=== PATIENT | female | born 2005 | race Caucasian/White ===

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

== ENCOUNTER 2023-06-13 19:54 | Emergency (ER) | payer OTHER ==
[~2023-06-13] VITALS: Ht 167.6 cm; Wt 108.2 kg
[~2023-06-13 19:54] MED LIST: DEPO-PROVER150 MG/M1 IM; PREDNISONE50 MG PO; PROAIR HFA0.09 MG/AC IH; REGLAN 10MG10 MG/TAB PO; TAMIFLU 75MG75 MG PO; ZOFRAN 4MG T4 MG/TAB PO
[2023-06-13 20:03] VITALS: BP 121/79; TEMP 98.3
[2023-06-13] MEDS ORDERED: AMOXICILLIN 8751 TAB PO (21:05)
[2023-06-13 21:41] VITALS: PULSE 101
== END 2023-06-13 21:10 | disposition home or self-care (01) ==
LOC: COL.ER 19:54
DX: O99.713 Diseases of the skin and subcutaneous tissue complicating pregnancy, third trimester (principal); L02.411 Cutaneous abscess of right axilla; Z3A.34 34 weeks gestation of pregnancy

== ENCOUNTER 2024-05-12 07:12 | Emergency (ER) | payer OTHER, MEDICAID ==
[~2024-05-12] VITALS: Ht 167.6 cm; Wt 120.5 kg
[~2024-05-12 07:12] MED LIST changes: +AMOXICILLIN 8751 TAB PO
[2024-05-12] MEDS ORDERED: Acetaminophen 500 MG TAB PO ONE (08:00)
[2024-05-12] MEDS ORDERED: Morphine 10 MG/ML VIAL IM ONE (08:00)
[2024-05-12] MEDS ORDERED: PERCOCET 325 MG1 TA2 PO (08:55)
[2024-05-12 09:50] VITALS: BP 117/70; PULSE 123; TEMP 98.1
== END 2024-05-12 09:30 | disposition home or self-care (01) ==
LOC: COL.ER 07:12
DX: B34.9 Viral infection, unspecified (principal)
CPT/HCPCS: J2270

== ENCOUNTER 2024-05-13 09:11 | Emergency (ER) | payer OTHER, MEDICAID ==
[~2024-05-13] VITALS: Ht 170.2 cm; Wt 120.5 kg
[~2024-05-13 09:11] MED LIST changes: +PERCOCET 325 MG1 TA2 PO
[2024-05-13 09:17] VITALS: TEMP 98.3
[2024-05-13] MEDS ORDERED: LR 1,000 ML IV ONE (10:00)
[2024-05-13 10:11] LABS: BASO # 0.1 K/mm3 (0.0-0.2); BASO % 0.6 % (0.0-2.0); EOS # 0.2 K/mm3 (0.0-0.7); EOS % 1.6 % (0.0-4.0); GRAN # 7.9 K/mm3 (1.4-6.5); GRAN % 74.4 % (42.2-75.2); HEMATOCRIT 37.3 % (35.0-45.0); HEMOGLOBIN 12.4 g/dl (12.0-15.0); LYMPH # 1.7 K/mm3 (1.2-3.4); LYMPH % 16.2 % (20.0-51.0); MEAN CELL VOLUME 86 fl (80.0-95.0); MEAN CORPUSCULAR HEMOGLOBIN 29 pg (26-32); MEAN CORPUSCULAR HGB CONC 33 g/dl (33.0-37.0); MEAN PLATELET VOLUME 9.6 fl (7.4-10.4); MONO # 0.7 K/mm3 (0.1-0.6); MONO % 6.8 % (1.7-9.3); PLATELET COUNT 284 K/mm3 (130-400); RED BLOOD COUNT 4.34 M/mm3 (4.10-5.30); REDCELL DISTRIBUTION WIDTH-CV 13.8 % (11.5-14.5)
[2024-05-13 10:27] LABS: ALBUMIN 3.7 g/dL (3.5-5.0); BILIRUBIN,TOTAL 0.3 mg/dL (0.2-1.2); C-REACTIVE PROTEIN 9.11 mg/dL (0.00-0.50); CALCIUM 9.3 mg/dL (8.4-10.2); CREATININE, serum 0.82 mg/dL (0.57-1.11); POTASSIUM 3.9 mEq/L (3.5-4.5)
[2024-05-13] MEDS ORDERED: Ketorolac 15 MG/ML VIAL IV ONE (10:45)
[2024-05-13] MEDS ORDERED: diphenhydrAMINE 50 MG/ML 1 ML VIAL IV ONE (10:45)
[2024-05-13 11:00] LABS: PH 5.5 (5.0-8.5); URINE APPEARANCE CLEAR (CLEAR/HAZY); URINE BLOOD NEGATIVE (NEGATIVE); URINE COLOR YELLOW (YELLOW); URINE GLUCOSE NEGATIVE (NEGATIVE); URINE KETONE NEGATIVE (NEGATIVE); URINE NITRATE NEGATIVE (NEGATIVE); URINE PROTEIN(semi-quant) TRACE (NEGATIVE)
[2024-05-13 11:21] LABS: COLLECTION METHOD CLEAN CATCH
[2024-05-13 11:58] VITALS: BP 128/78; PULSE 87
== END 2024-05-13 12:04 | disposition home or self-care (01) ==
LOC: COL.ER 09:11
PROVIDERS: Family Medicine
DX: R51.9 Headache, unspecified (principal)
CPT/HCPCS: J0780; J1200; J1885; J7120